=== PATIENT | male | born 1935 | race African-American/Black ===

== ENCOUNTER 2017-08-08 12:41 | Inpatient (IN) | payer BC ==
[~2017-08-08] VITALS: Ht 175.3 cm; Wt 74.8 kg
[2017-08-08 16:15] LABS: BASOPHILS % 0.7 % (0.0-2.0); HEMATOCRIT. 40.3 % (42.0-52.0); HEMOGLOBIN. 13.9 g/dL (14.0-18.0); LYMPHOCYTES % 18.5 % (20.0-50.0); MEAN CORPUSCULAR HEMOGLOBIN 31.7 pg (28.0-32.0); MEAN CORPUSCULAR VOLUME 91.9 fL (80.0-94.0); MEAN PLATELET VOLUME 8.7 fl (7.4-10.4); MONOCYTES % 8.4 % (2.0-8.0); NEUTROPHILS % 70.4 % (40.0-76.0); PLATELET 242 x1000/uL (130-400); RED BLOOD CELL COUNT 4.38 mill/uL (4.7-6.1); RED CELL DISTRIBUTION WIDTH 12.6 % (11.6-14.6)
[2017-08-08 16:18] LABS: PROTHROMBIN TIME 10.6 sec (9.4-11.6)
[2017-08-08 16:21] LABS: CHLORIDE 105 mEq/L (98-107)
[2017-08-08 16:26] LABS: CLARITY URINE CLOUDY (CLEAR); COLOR URINE YELLOW (YELLOW); KETONES URINE NEGATIVE (NEGATIVE); LEUKOCYTE ESTERASE URINE 3+ (NEGATIVE); NITRITE URINE NEGATIVE (NEGATIVE); OCCULT BLOOD URINE 3+ (NEGATIVE); PROTEIN URINE 2+ (NEGATIVE); SPECIFIC GRAVITY URINE 1.017 (1.005-1.030); UROBILINOGEN URINE 0.2 E.U./dL (0.2-1.0)
[2017-08-08 16:28] LABS: T4 FREE 1.07 ng/dL (0.76-1.46)
[2017-08-08] MEDS ORDERED: TRAMADOL 50MG TABLET PO ONE (17:00)
[2017-08-08] MEDS ORDERED: LEVOFLOXACIN 750MG PREMIX 150 ML IV ONE (17:45)
[2017-08-09] VITALS: BP 160/100
[2017-08-09 00:50] VITALS: BP 160/100
[2017-08-09] MEDS ORDERED: DOCU-150 PO (01:12)
[2017-08-09] MEDS ORDERED: DEXTROSE 50% WATER 50ML SYRINGE IV PRN (02:15)
[2017-08-09] MEDS ORDERED: CLONIDINE 0.1MG TABLET PO PRN (02:15)
[2017-08-09 04:00] VITALS: BP 113/59
[2017-08-09] MEDS ORDERED: DEXT 5%/0.45% NACL 1000ML 1,000 ML IV SCH (06:00)
[2017-08-09] MEDS: BLOOD SUGAR DIAGNOSTIC STRIP TEST SCH ×4 (07:20→21:34)
[2017-08-09 08:00] VITALS: BP 111/60
[2017-08-09] MEDS: INSULIN LISPRO 100 UNITS/ML SUBCUT SCH ×4 (08:35→22:20)
[2017-08-09] MEDS: SODIUM CHLORIDE 0.9% 1,000 ML IV SCH (11:45)
[2017-08-09 12:00] VITALS: BP 151/60
[2017-08-09] MEDS: ENOXAPARIN 40MG/0.4ML SYR SUBCUT SCH (13:18)
[2017-08-09] MEDS: QUETIAPINE FUMARATE 25MG TABLET PO SCH (13:19)
[2017-08-09] MEDS ORDERED: VANCOMYCIN 1500MG in DEXTROSE 5% WATER 250ML IV SCH (14:00)
[2017-08-09 15:41] LABS: BASOPHILS % 0.8 % (0.0-2.0); EOSINOPHILS % 1.3 % (0.0-5.0); HEMATOCRIT. 40.7 % (42.0-52.0); HEMOGLOBIN. 13.5 g/dL (14.0-18.0); LYMPHOCYTES % 18.8 % (20.0-50.0); MEAN CORPUSCULAR VOLUME 93.5 fL (80.0-94.0); MEAN PLATELET VOLUME 9.2 fl (7.4-10.4); MONOCYTES % 8.1 % (2.0-8.0); PLATELET 250 x1000/uL (130-400); RED BLOOD CELL COUNT 4.35 mill/uL (4.7-6.1); RED CELL DISTRIBUTION WIDTH 12.8 % (11.6-14.6)
[2017-08-09 15:45] LABS: CHLORIDE 102 mEq/L (98-107)
[2017-08-09 16:00] VITALS: BP 97/64
[2017-08-09] MEDS: LEVOFLOXACIN 750MG PREMIX 150 ML IV SCH (18:06)
[2017-08-09] MEDS: LORAZEPAM 2MG/ML CPJ IV PRN (21:55)
[2017-08-10] MEDS: SODIUM CHLORIDE 0.9% 1,000 ML IV SCH ×2 (01:05→18:42)
[2017-08-10] MEDS: VANCOMYCIN 750 MG PREMIX 150 ML IV SCH ×2 (02:55→14:02)
[2017-08-10] MEDS: LORAZEPAM 2MG/ML CPJ IV PRN (04:37)
[2017-08-10 07:34] LABS: BASOPHILS % 0.5 % (0.0-2.0); EOSINOPHILS % 3.6 % (0.0-5.0); LYMPHOCYTES % 23.6 % (20.0-50.0); MEAN CORPUSCULAR VOLUME 92.7 fL (80.0-94.0); MONOCYTES % 9.8 % (2.0-8.0); NEUTROPHILS % 62.5 % (40.0-76.0); PLATELET 207 x1000/uL (130-400); RED CELL DISTRIBUTION WIDTH 12.6 % (11.6-14.6)
[2017-08-10] MEDS: BLOOD SUGAR DIAGNOSTIC STRIP TEST SCH ×4 (07:47→20:52)
[2017-08-10 08:00] VITALS: BP 119/65
[2017-08-10 08:15] LABS: CHLORIDE 104 mEq/L (98-107)
[2017-08-10] MEDS: ENOXAPARIN 40MG/0.4ML SYR SUBCUT SCH (08:44)
[2017-08-10] MEDS: QUETIAPINE FUMARATE 25MG TABLET PO SCH (08:44)
[2017-08-10] MEDS: INSULIN LISPRO 100 UNITS/ML SUBCUT SCH ×4 (08:44→21:01)
[2017-08-10 12:00] VITALS: BP 138/53
[2017-08-10 16:00] VITALS: BP 121/64
[2017-08-10] MEDS: LEVOFLOXACIN 750MG PREMIX 150 ML IV SCH (18:18)
[2017-08-11] VITALS: BP 125/68
[2017-08-11] MEDS: VANCOMYCIN 750 MG PREMIX 150 ML IV SCH (02:25)
[2017-08-11 06:17] LABS: BASOPHILS % 0.4 % (0.0-2.0); HEMATOCRIT. 37.1 % (42.0-52.0); HEMOGLOBIN. 12.5 g/dL (14.0-18.0); MEAN CORPUSCULAR HEMOGLOBIN 31.2 pg (28.0-32.0); MEAN CORPUSCULAR VOLUME 92.2 fL (80.0-94.0); MEAN PLATELET VOLUME 9.3 fl (7.4-10.4); NEUTROPHILS % 62.6 % (40.0-76.0); PLATELET 219 x1000/uL (130-400); RED BLOOD CELL COUNT 4.02 mill/uL (4.7-6.1); RED CELL DISTRIBUTION WIDTH 12.5 % (11.6-14.6)
[2017-08-11 06:41] LABS: CHLORIDE 107 mEq/L (98-107)
[2017-08-11] MEDS: BLOOD SUGAR DIAGNOSTIC STRIP TEST SCH ×4 (07:20→21:24)
[2017-08-11] MEDS: INSULIN LISPRO 100 UNITS/ML SUBCUT SCH ×4 (07:50→21:29)
[2017-08-11 08:00] VITALS: BP 138/77
[2017-08-11] MEDS: QUETIAPINE FUMARATE 25MG TABLET PO SCH ×2 (09:59→21:03)
[2017-08-11] MEDS: ENOXAPARIN 40MG/0.4ML SYR SUBCUT SCH (10:00)
[2017-08-11] MEDS: SODIUM CHLORIDE 0.9% 1,000 ML IV SCH (10:22)
[2017-08-11] MEDS: LORAZEPAM 2MG/ML CPJ IV PRN (14:17)
[2017-08-11] MEDS: VANCOMYCIN 1 G PREMIX 200 ML IV SCH (15:53)
[2017-08-11 16:00] VITALS: BP 146/61
[2017-08-11] MEDS: LEVOFLOXACIN 750MG PREMIX 150 ML IV SCH (19:07)
[2017-08-11 20:00] VITALS: BP 134/58
[2017-08-12] VITALS (7 sets, daily range): BP systolic 114–174; BP diastolic 62–82
[2017-08-12] MEDS: MEROPENEM 500 MG in SODIUM CHLORIDE 0.9% 50 ML IV SCH ×3 (04:41→18:32)
[2017-08-12] MEDS: VANCOMYCIN 1 G PREMIX 200 ML IV SCH ×2 (05:18→15:35)
[2017-08-12] MEDS: BLOOD SUGAR DIAGNOSTIC STRIP TEST SCH ×4 (06:42→21:25)
[2017-08-12] MEDS: ENOXAPARIN 40MG/0.4ML SYR SUBCUT SCH (08:37)
[2017-08-12] MEDS: QUETIAPINE FUMARATE 25MG TABLET PO SCH ×2 (08:37→21:19)
[2017-08-12] MEDS: INSULIN LISPRO 100 UNITS/ML SUBCUT SCH ×4 (09:49→21:59)
[2017-08-12 09:59] LABS: HEMATOCRIT 40.9 % (42.0-52.0); MEAN CORPUSCULAR HEMOGLOBIN 31.5 pg (28.0-32.0); MEAN CORPUSCULAR VOLUME 92.2 fL (80.0-94.0); PLATELET 244 x1000/uL (130-400); RED BLOOD CELL COUNT 4.44 mill/uL (4.7-6.1); RED CELL DISTRIBUTION WIDTH 12.6 % (11.6-14.6)
[2017-08-12 10:16] LABS: CHLORIDE 107 mEq/L (98-107)
[2017-08-12] MEDS: LORAZEPAM 2MG/ML CPJ IV PRN (12:18)
[2017-08-13] VITALS: BP 147/58
[2017-08-13] MEDS: MEROPENEM 500 MG in SODIUM CHLORIDE 0.9% 50 ML IV SCH ×3 (02:27→19:06)
[2017-08-13] MEDS: VANCOMYCIN 1 G PREMIX 200 ML IV SCH ×2 (03:21→17:22)
[2017-08-13 04:00] VITALS: BP 124/64
[2017-08-13] MEDS: BLOOD SUGAR DIAGNOSTIC STRIP TEST SCH ×4 (07:28→20:28)
[2017-08-13 08:31] VITALS: BP 109/62
[2017-08-13] MEDS: QUETIAPINE FUMARATE 25MG TABLET PO SCH ×2 (08:57→20:20)
[2017-08-13] MEDS: ENOXAPARIN 40MG/0.4ML SYR SUBCUT SCH (08:57)
[2017-08-13] MEDS: ACETAMINOPHEN 650MG/20.3ML UDC PO PRN ×2 (08:59→19:08)
[2017-08-13] MEDS: INSULIN LISPRO 100 UNITS/ML SUBCUT SCH ×4 (09:00→21:25)
[2017-08-13 12:33] VITALS: BP 122/57
[2017-08-13 16:44] VITALS: BP 125/59
[2017-08-13 20:00] VITALS: BP 125/71
[2017-08-14] VITALS: BP 163/67
[2017-08-14] MEDS: MEROPENEM 500 MG in SODIUM CHLORIDE 0.9% 50 ML IV SCH ×2 (02:54→11:29)
[2017-08-14 04:00] VITALS: BP 142/67
[2017-08-14] MEDS: BLOOD SUGAR DIAGNOSTIC STRIP TEST SCH ×2 (07:20→12:20)
[2017-08-14 07:46] LABS: CHLORIDE 106 mEq/L (98-107)
[2017-08-14 08:39] VITALS: BP 156/73
[2017-08-14] MEDS: QUETIAPINE FUMARATE 25MG TABLET PO SCH (08:47)
[2017-08-14] MEDS: ENOXAPARIN 40MG/0.4ML SYR SUBCUT SCH (08:48)
[2017-08-14] MEDS: INSULIN LISPRO 100 UNITS/ML SUBCUT SCH ×2 (08:49→14:12)
[2017-08-14] MEDS ORDERED: VANCOMYCIN 1 G PREMIX 200 ML IV SCH (09:00)
[2017-08-14 11:46] VITALS: BP 114/82
== END 2017-08-14 14:15 | DRG 871 ==
LOC: ER 13:36 → 6EST 18:06 → OBSVTOIN 18:06 → INTOOBSV 18:06 → ENRESERV 20:23
PROVIDERS: ADMIT Internal Medicine; ATTEND Internal Medicine
PROC: 02HV33Z Insertion of Infusion Device into Superior Vena Cava, Percutaneous Approach (ICD-10-PCS; principal; 2017-08-10)
PROC: B5181ZA Fluoroscopy of Superior Vena Cava using Low Osmolar Contrast, Guidance (ICD-10-PCS; 2017-08-10)
PROC: B548ZZA Ultrasonography of Superior Vena Cava, Guidance (ICD-10-PCS; 2017-08-10)
DX: A41.9 Sepsis, unspecified organism (principal); J18.9 Pneumonia, unspecified organism; G93.41 Metabolic encephalopathy; E11.65 Type 2 diabetes mellitus with hyperglycemia; L03.115 Cellulitis of right lower limb; N39.0 Urinary tract infection, site not specified; M86.9 Osteomyelitis, unspecified; W18.30XA Fall on same level, unspecified, initial encounter; B96.89 Other specified bacterial agents as the cause of diseases classified elsewhere; Z16.12 Extended spectrum beta lactamase (ESBL) resistance; E11.69 Type 2 diabetes mellitus with other specified complication; D64.9 Anemia, unspecified; F03.90 Unspecified dementia, unspecified severity, without behavioral disturbance, psychotic disturbance, mood disturbance, and anxiety; I10 Essential (primary) hypertension; Y93.89 Activity, other specified; Y92.238 Other place in hospital as the place of occurrence of the external cause
CPT/HCPCS: 36415; 36569; 71045; 73090; 73110; 73620; 73721; 76937; 77001; 80048; 80053; 80202; 81003; 82962; 83735; 83880; 84439; 84484; 85025; 85027; 85610; 87077; 87086; 87186; 93005; 93971; 96365; 97162; 99285; C1725; C1893; J1650; J1815; J1956; J2060; J2185; J3370; J3490; J7030; J7040; J7060

== ENCOUNTER 2018-01-02 16:24 | Emergency (ER) | payer BC ==
[~2018-01-02] VITALS: Ht 172.7 cm; Wt 75.0 kg
[~2018-01-02 16:24] MED LIST: DOCU-150 PO
[2018-01-02 17:40] LABS: BASOPHILS % 0.7 % (0.0-2.0); EOSINOPHILS % 3.1 % (0.0-5.0); HEMATOCRIT. 41.6 % (42.0-52.0); HEMOGLOBIN. 14.1 g/dL (14.0-18.0); LYMPHOCYTES % 22.1 % (20.0-50.0); MEAN CORPUSCULAR HEMOGLOBIN 31.9 pg (28.0-32.0); MEAN CORPUSCULAR VOLUME 94.1 fL (80.0-94.0); MONOCYTES % 5.2 % (2.0-8.0); NEUTROPHILS % 68.9 % (40.0-76.0); PLATELET 290 x1000/uL (130-400); RED BLOOD CELL COUNT 4.42 mill/uL (4.7-6.1); RED CELL DISTRIBUTION WIDTH 12.5 % (11.6-14.6)
[2018-01-02 17:49] LABS: CHLORIDE 102 mEq/L (98-107)
[2018-01-02 20:29] VITALS: BP 154/80
== END 2018-01-02 20:30 | disposition home or self-care (01) ==
LOC: ER 18:08
DX: G89.29 Other chronic pain (principal); M79.671 Pain in right foot; R60.0 Localized edema; E11.9 Type 2 diabetes mellitus without complications; F03.90 Unspecified dementia, unspecified severity, without behavioral disturbance, psychotic disturbance, mood disturbance, and anxiety; R03.0 Elevated blood-pressure reading, without diagnosis of hypertension
CPT/HCPCS: 36415; 73630; 80053; 85025; 85610; 99285

== ENCOUNTER 2018-05-19 00:57 | Inpatient (IN) | payer BC ==
[2018-05-19] VITALS (8 sets, daily range): BP systolic 115–158; BP diastolic 62–85
[~2018-05-19] VITALS: Ht 182.9 cm; Wt 80.3 kg
[~2018-05-19 00:57] MED LIST changes: +ASPI-1160 MT; +CLON0.1T MT; +DOCU-150 MT; -DOCU-150 PO; +ENOX40DI8 SQ; +MULT-1146 MT; +ONDA4TAB50 MT
[2018-05-19 02:33] LABS: BASOPHILS % 1.2 % (0.0-2.0); EOSINOPHILS % 1.2 % (0.0-5.0); HEMATOCRIT. 37.4 % (42.0-52.0); HEMOGLOBIN. 12.4 g/dL (14.0-18.0); LYMPHOCYTES % 7.6 % (20.0-50.0); MEAN CORPUSCULAR HEMOGLOBIN 30.7 pg (28.0-32.0); MEAN CORPUSCULAR VOLUME 92.8 fL (80.0-94.0); MONOCYTES % 5.9 % (2.0-8.0); NEUTROPHILS % 84.1 % (40.0-76.0); PLATELET 358 x1000/uL (130-400); RED BLOOD CELL COUNT 4.03 mill/uL (4.7-6.1); RED CELL DISTRIBUTION WIDTH 12.7 % (11.6-14.6)
[2018-05-19 02:39] LABS: CHLORIDE 101 mEq/L (98-107)
[2018-05-19 02:41] LABS: PARTIAL THROMBOPLASTIN TIME 27.1 sec (23.4-31.0); PROTHROMBIN TIME 10.3 sec (9.1-11.1)
[2018-05-19 03:30] LABS: CLARITY URINE CLEAR (CLEAR); COLOR URINE YELLOW (YELLOW); KETONES URINE NEGATIVE (NEGATIVE); LEUKOCYTE ESTERASE URINE NEGATIVE (NEGATIVE); NITRITE URINE NEGATIVE (NEGATIVE); OCCULT BLOOD URINE 2+ (NEGATIVE); PH URINE 5.5 (4.5-8.0); PROTEIN URINE TRACE (NEGATIVE); SPECIFIC GRAVITY URINE 1.015 (1.005-1.030); UROBILINOGEN URINE 0.2 E.U./dL (0.2-1.0)
[2018-05-19] MEDS ORDERED: SODIUM BICARBONATE 8.4% 1 MEQ/ML 50ML SYR IV SCH (04:15)
[2018-05-19] MEDS ORDERED: INSULIN REGULAR (HUMULIN R) 300UNITS/3ML IV SCH (04:15)
[2018-05-19] MEDS ORDERED: ASPIRIN 325MG TABLET PO SCH (04:15)
[2018-05-19] MEDS ORDERED: ALBUTEROL (0.083%) 2.5MG/3ML NEB HHN SCH (04:15)
[2018-05-19] MEDS ORDERED: CALCIUM CHLORIDE 1GM/10ML SYR IV SCH (04:15)
[2018-05-19] MEDS ORDERED: DEXTROSE 50% WATER 50ML SYRINGE IV SCH (04:15)
[2018-05-19] MEDS ORDERED: LORAZEPAM 2MG/ML CPJ IV ONE (05:30)
[2018-05-19] MEDS ORDERED: SODIUM CHLORIDE 0.9% 1000ML BAG (SEPSIS BOLUS) IV ONE (06:15)
[2018-05-19 06:29] LABS: CREATINE KINASE 253 IU/L (39-308)
[2018-05-19] MEDS ORDERED: ACETAMINOPHEN 650MG SUPP PR PRN (10:30)
[2018-05-19] MEDS ORDERED: DEXTROSE 50% WATER 50ML SYRINGE IV PRN (10:30)
[2018-05-19] MEDS ORDERED: DEXT 5%/0.45% NACL 1000ML 1,000 ML IV SCH (11:00)
[2018-05-19] MEDS ORDERED: ZINC220T PO (11:16)
[2018-05-19] MEDS ORDERED: ACET-2708 PO (11:16)
[2018-05-19] MEDS ORDERED: HYDR-4001 PO (11:16)
[2018-05-19] MEDS ORDERED: ASCO500C15 PO (11:16)
[2018-05-19] MEDS: INSULIN LISPRO 100 UNITS/ML SUBCUT SCH ×2 (12:00→17:36)
[2018-05-19] MEDS: DEXT 5%/0.45% NACL 1000ML 1,000 ML IV SCH ×2 (12:15→22:11)
[2018-05-19] MEDS: BLOOD SUGAR DIAGNOSTIC STRIP TEST SCH ×2 (12:15→17:34)
[2018-05-19] MEDS: PIPERACILLIN/TAZ 2.25G PREMIX 50 ML IV SCH (13:03)
[2018-05-19 14:11] LABS: BG BASE EXCESS -3.7 mmol/L (-2.0-2.0); BG DEOXYHEMOGLOBIN 1.7 % (0.0-5.0); BG FRACTION INSPIRED OXYGEN 32; BG HCO3 ACT 19.3 mmol/L (22.0-26.0); BG METHEMOGLOBIN 0.4 % (0.0-1.5); BG OXYGEN SATURATION 98.3 % (92.0-98.5); BG OXYHEMOGLOBIN 96.9 % (94.0-97.0); BG PCO2 28.5 mmHg (35.0-45.0); BG PH 7.449 (7.350-7.450); BG PO2 129.3 mmHg (75.0-100.0); BG SAMPLE SITE RIGHT RADIAL; BG TOTAL HEMOGLOBIN 10.7 g/dL (12.0-18.0); BG VENT MODE NASAL CANNULA
[2018-05-19 15:50] LABS: HEMATOCRIT 31.6 % (42.0-52.0); HEMOGLOBIN 10.7 g/dL (14.0-18.0); PLATELET 334 x1000/uL (130-400); RED BLOOD CELL COUNT 3.44 mill/uL (4.7-6.1); RED CELL DISTRIBUTION WIDTH 12.5 % (11.6-14.6)
[2018-05-19 16:11] LABS: CREATINE KINASE MB FRACTION 9.8 ng/mL (0.5-3.6)
[2018-05-19] MEDS: LORAZEPAM 2MG/ML CPJ IV PRN (22:12)
[2018-05-19] MEDS: HEPARIN 5000 UNITS/ML VIAL SUBCUT SCH (22:15)
[2018-05-19] MEDS: INSULIN GLARGINE UD 100 UNITS/ML SYR SUBCUT SCH (22:26)
[2018-05-20] VITALS (12 sets, daily range): BP systolic 92–160; BP diastolic 44–101
[2018-05-20] MEDS: PIPERACILLIN/TAZ 2.25G PREMIX 50 ML IV SCH ×3 (01:41→20:49)
[2018-05-20] MEDS: BLOOD SUGAR DIAGNOSTIC STRIP TEST SCH ×4 (04:52→18:30)
[2018-05-20] MEDS: INSULIN LISPRO 100 UNITS/ML SUBCUT SCH ×4 (04:52→18:00)
[2018-05-20 06:16] LABS: BASOPHILS % 1.1 % (0.0-2.0); HEMATOCRIT. 33.8 % (42.0-52.0); HEMOGLOBIN. 11.3 g/dL (14.0-18.0); LYMPHOCYTES % 16.1 % (20.0-50.0); MEAN CORPUSCULAR HEMOGLOBIN 31.1 pg (28.0-32.0); MEAN CORPUSCULAR VOLUME 93.3 fL (80.0-94.0); MEAN PLATELET VOLUME 8.8 fl (7.4-10.4); MONOCYTES % 11.9 % (2.0-8.0); NEUTROPHILS % 66.9 % (40.0-76.0); PLATELET 372 x1000/uL (130-400); RED BLOOD CELL COUNT 3.62 mill/uL (4.7-6.1); RED CELL DISTRIBUTION WIDTH 12.7 % (11.6-14.6)
[2018-05-20] MEDS: DEXT 5%/0.45% NACL 1000ML 1,000 ML IV SCH ×2 (07:58→17:24)
[2018-05-20] MEDS: INSULIN GLARGINE UD 100 UNITS/ML SYR SUBCUT SCH ×2 (10:59→22:06)
[2018-05-20] MEDS: HEPARIN 5000 UNITS/ML VIAL SUBCUT SCH ×2 (10:59→20:51)
[2018-05-20] MEDS: LORAZEPAM 2MG/ML CPJ IV PRN (20:11)
[2018-05-20] MEDS: ONDANSETRON HCL 4MG/2ML INJ IV PRN (20:11)
[2018-05-20] MEDS: DIPHENHYDRAMINE 50MG/ML VIAL IV PRN (20:11)
[2018-05-21] VITALS (11 sets, daily range): BP systolic 101–163; BP diastolic 47–82
[2018-05-21] MEDS: DEXT 5%/0.45% NACL 1000ML 1,000 ML IV SCH ×3 (00:06→23:50)
[2018-05-21] MEDS: INSULIN LISPRO 100 UNITS/ML SUBCUT SCH ×5 (00:07→23:49)
[2018-05-21] MEDS: LORAZEPAM 2MG/ML CPJ IV PRN (04:43)
[2018-05-21] MEDS: DIPHENHYDRAMINE 50MG/ML VIAL IV PRN (04:43)
[2018-05-21] MEDS: BLOOD SUGAR DIAGNOSTIC STRIP TEST SCH ×5 (05:48→23:34)
[2018-05-21 05:51] LABS: BASOPHILS % 0.8 % (0.0-2.0); EOSINOPHILS % 4.2 % (0.0-5.0); HEMATOCRIT. 35.7 % (42.0-52.0); HEMOGLOBIN. 11.8 g/dL (14.0-18.0); LYMPHOCYTES % 15.9 % (20.0-50.0); MEAN CORPUSCULAR HEMOGLOBIN 30.9 pg (28.0-32.0); MEAN CORPUSCULAR VOLUME 93.4 fL (80.0-94.0); MEAN PLATELET VOLUME 8.8 fl (7.4-10.4); MONOCYTES % 13.2 % (2.0-8.0); NEUTROPHILS % 65.9 % (40.0-76.0); PLATELET 393 x1000/uL (130-400); RED BLOOD CELL COUNT 3.82 mill/uL (4.7-6.1); RED CELL DISTRIBUTION WIDTH 12.9 % (11.6-14.6)
[2018-05-21] MEDS: PIPERACILLIN/TAZ 2.25G PREMIX 50 ML IV SCH ×3 (08:44→23:49)
[2018-05-21] MEDS: HEPARIN 5000 UNITS/ML VIAL SUBCUT SCH (08:45)
[2018-05-21] MEDS: INSULIN GLARGINE UD 100 UNITS/ML SYR SUBCUT SCH ×2 (10:49→21:30)
[2018-05-21] MEDS: TAMSULOSIN HCL 0.4MG SR CAPSULE PO SCH (12:26)
[2018-05-21] MEDS: LINEZOLID 600 MG PREMIX 300 ML IV SCH (21:23)
[2018-05-22] VITALS (10 sets, daily range): BP systolic 116–152; BP diastolic 51–79
[2018-05-22 05:34] LABS: HEMATOCRIT 33.7 % (42.0-52.0); HEMOGLOBIN 11.1 g/dL (14.0-18.0); MEAN CORPUSCULAR HEMOGLOBIN 30.7 pg (28.0-32.0); MEAN CORPUSCULAR VOLUME 93.3 fL (80.0-94.0); PLATELET 397 x1000/uL (130-400); RED BLOOD CELL COUNT 3.62 mill/uL (4.7-6.1); RED CELL DISTRIBUTION WIDTH 12.8 % (11.6-14.6)
[2018-05-22 05:50] LABS: CHLORIDE 111 mEq/L (98-107)
[2018-05-22] MEDS: BLOOD SUGAR DIAGNOSTIC STRIP TEST SCH ×3 (06:00→18:00)
[2018-05-22] MEDS: INSULIN LISPRO 100 UNITS/ML SUBCUT SCH ×3 (06:00→19:05)
[2018-05-22] MEDS: PIPERACILLIN/TAZ 2.25G PREMIX 50 ML IV SCH ×2 (06:21→11:58)
[2018-05-22] MEDS: LINEZOLID 600 MG PREMIX 300 ML IV SCH ×2 (09:30→22:56)
[2018-05-22] MEDS: INSULIN GLARGINE UD 100 UNITS/ML SYR SUBCUT SCH ×2 (10:29→23:04)
[2018-05-22] MEDS: TAMSULOSIN HCL 0.4MG SR CAPSULE PO SCH (10:29)
[2018-05-22] MEDS: DEXT 5%/0.45% NACL 1000ML 1,000 ML IV SCH ×2 (11:58→22:59)
[2018-05-22] MEDS: MEROPENEM 1000MG in NORMAL SALINE 100ML IV SCH (18:27)
[2018-05-23] VITALS (12 sets, daily range): BP systolic 103–157; BP diastolic 50–76
[2018-05-23] MEDS: INSULIN LISPRO 100 UNITS/ML SUBCUT SCH ×4 (01:47→18:23)
[2018-05-23] MEDS: MEROPENEM 1000MG in NORMAL SALINE 100ML IV SCH ×3 (02:08→18:22)
[2018-05-23] MEDS: ONDANSETRON HCL 4MG/2ML INJ IV PRN (04:46)
[2018-05-23 05:52] LABS: HEMATOCRIT 33.4 % (42.0-52.0); MEAN CORPUSCULAR VOLUME 93.9 fL (80.0-94.0); PLATELET 392 x1000/uL (130-400); RED BLOOD CELL COUNT 3.55 mill/uL (4.7-6.1); RED CELL DISTRIBUTION WIDTH 12.5 % (11.6-14.6)
[2018-05-23] MEDS: BLOOD SUGAR DIAGNOSTIC STRIP TEST SCH ×4 (06:00→17:37)
[2018-05-23 06:15] LABS: CHLORIDE 109 mEq/L (98-107)
[2018-05-23] MEDS ORDERED: LORAZEPAM 2MG/ML CPJ IV PRN (07:45)
[2018-05-23] MEDS: TAMSULOSIN HCL 0.4MG SR CAPSULE PO SCH (08:02)
[2018-05-23] MEDS: LINEZOLID 600 MG PREMIX 300 ML IV SCH ×2 (08:14→20:25)
[2018-05-23] MEDS: INSULIN GLARGINE UD 100 UNITS/ML SYR SUBCUT SCH ×2 (09:48→22:14)
[2018-05-23] MEDS ORDERED: QUETIAPINE FUMARATE 25MG TABLET PO SCH (21:00)
[2018-05-24] VITALS (10 sets, daily range): BP systolic 92–148; BP diastolic 51–73
[2018-05-24] MEDS: INSULIN LISPRO 100 UNITS/ML SUBCUT SCH ×3 (00:13→12:39)
[2018-05-24] MEDS: BLOOD SUGAR DIAGNOSTIC STRIP TEST SCH ×3 (00:42→12:01)
[2018-05-24] MEDS: MEROPENEM 1000MG in NORMAL SALINE 100ML IV SCH ×2 (02:38→09:11)
[2018-05-24 06:35] LABS: BASOPHILS % 0.8 % (0.0-2.0); EOSINOPHILS % 6.2 % (0.0-5.0); HEMATOCRIT. 30.6 % (42.0-52.0); HEMOGLOBIN. 10.1 g/dL (14.0-18.0); LYMPHOCYTES % 24.1 % (20.0-50.0); MEAN CORPUSCULAR HEMOGLOBIN 30.9 pg (28.0-32.0); MEAN CORPUSCULAR VOLUME 93.8 fL (80.0-94.0); MEAN PLATELET VOLUME 8.2 fl (7.4-10.4); MONOCYTES % 8.7 % (2.0-8.0); NEUTROPHILS % 60.2 % (40.0-76.0); PLATELET 374 x1000/uL (130-400); RED BLOOD CELL COUNT 3.26 mill/uL (4.7-6.1); RED CELL DISTRIBUTION WIDTH 12.5 % (11.6-14.6)
[2018-05-24 06:55] LABS: CHLORIDE 105 mEq/L (98-107)
[2018-05-24] MEDS ORDERED: DEXT 5%/0.45% NACL 1000ML 1,000 ML IV SCH (07:00)
[2018-05-24] MEDS: TAMSULOSIN HCL 0.4MG SR CAPSULE PO SCH (08:34)
[2018-05-24] MEDS: LINEZOLID 600 MG PREMIX 300 ML IV SCH (09:11)
[2018-05-24] MEDS: INSULIN GLARGINE UD 100 UNITS/ML SYR SUBCUT SCH (09:13)
[2018-05-24] MEDS ORDERED: QUETIAPINE FUMARATE 25MG TABLET PO SCH (10:00)
[2018-05-24] MEDS ORDERED: INSULIN GLARGINE UD 100 UNITS/ML SYR SUBCUT SCH (11:00)
== END 2018-05-24 16:20 | DRG 682 ==
LOC: ER 00:57 → ENRESERV 08:23 → 5EST 09:42
PROVIDERS: ADMIT Internal Medicine; ATTEND Internal Medicine
DX: N17.9 Acute kidney failure, unspecified (principal); G92 Toxic encephalopathy; J69.0 Pneumonitis due to inhalation of food and vomit; E87.2 Acidosis; N13.8 Other obstructive and reflux uropathy; L97.919 Non-pressure chronic ulcer of unspecified part of right lower leg with unspecified severity; N39.0 Urinary tract infection, site not specified; N13.9 Obstructive and reflux uropathy, unspecified; I10 Essential (primary) hypertension; E87.5 Hyperkalemia; E78.5 Hyperlipidemia, unspecified; D72.829 Elevated white blood cell count, unspecified; E86.9 Volume depletion, unspecified; F03.90 Unspecified dementia, unspecified severity, without behavioral disturbance, psychotic disturbance, mood disturbance, and anxiety; N40.1 Benign prostatic hyperplasia with lower urinary tract symptoms; D64.9 Anemia, unspecified; E11.649 Type 2 diabetes mellitus with hypoglycemia without coma; Z87.440 Personal history of urinary (tract) infections; Z86.73 Personal history of transient ischemic attack (TIA), and cerebral infarction without residual deficits
CPT/HCPCS: 36415; 36600; 71045; 74176; 76770; 80048; 82140; 82375; 82550; 82553; 82805; 82962; 83036; 84153; 84484; 85027; 86850; 86900; 87070; 87077; 87186; 93005; 93970; 96374; 96375; 99285; J1200; J1644; J1815; J2020; J2060; J2185; J2405; J2543; J3490; J7040; A4315; G0103

== ENCOUNTER 2018-05-25 11:23 | Inpatient (IN) | payer BC ==
[~2018-05-25] VITALS: Ht 175.3 cm; Wt 68.1 kg
[~2018-05-25 11:23] MED LIST changes: +ACET-2708 PO; +ASCO500C15 PO; -CLON0.1T MT; -ENOX40DI8 SQ; +HYDR-4001 PO; +ZINC220T PO
[2018-05-25] MEDS ORDERED: CLONIDINE 0.1MG TABLET PO ONE (12:15)
[2018-05-25 13:00] LABS: BASOPHILS % 0.8 % (0.0-2.0); EOSINOPHILS % 2.4 % (0.0-5.0); HEMATOCRIT. 31.8 % (42.0-52.0); HEMOGLOBIN. 10.5 g/dL (14.0-18.0); LYMPHOCYTES % 14.5 % (20.0-50.0); MEAN CORPUSCULAR HEMOGLOBIN 31.4 pg (28.0-32.0); MEAN CORPUSCULAR VOLUME 94.7 fL (80.0-94.0); MONOCYTES % 4.8 % (2.0-8.0); NEUTROPHILS % 77.5 % (40.0-76.0); PLATELET 419 x1000/uL (130-400); RED BLOOD CELL COUNT 3.36 mill/uL (4.7-6.1); RED CELL DISTRIBUTION WIDTH 12.9 % (11.6-14.6)
[2018-05-25 13:08] LABS: CHLORIDE 103 mEq/L (98-107)
[2018-05-25 13:09] LABS: CLARITY URINE CLOUDY (CLEAR); COLOR URINE YELLOW (YELLOW); KETONES URINE NEGATIVE (NEGATIVE); LEUKOCYTE ESTERASE URINE TRACE (NEGATIVE); NITRITE URINE NEGATIVE (NEGATIVE); OCCULT BLOOD URINE 3+ (NEGATIVE); PH URINE 6.5 (4.5-8.0); PROTEIN URINE 2+ (NEGATIVE); SPECIFIC GRAVITY URINE 1.013 (1.005-1.030); UROBILINOGEN URINE 0.2 E.U./dL (0.2-1.0)
[2018-05-25 13:51] LABS: OPIATES URINE SCREEN NEGATIVE (NEGATIVE)
[2018-05-25 13:52] LABS: *AMPHETAMINES SCREEN URINE NEGATIVE (NEGATIVE); *BARBITURATES SCREEN URINE NEGATIVE (NEGATIVE); *COCAINE SCREEN URINE NEGATIVE (NEGATIVE); CANNABINOID URINE SCREEN NEGATIVE (NEGATIVE); PHENCYCLIDINE URINE SCREEN NEGATIVE (NEGATIVE)
[2018-05-25 13:53] LABS: *BENZODIAZEPINES SCREEN URINE NEGATIVE (NEGATIVE); METHADONE URINE SCREEN NEGATIVE (NEGATIVE)
[2018-05-25] MEDS ORDERED: MORPHINE SULFATE 4 MG/ML CPJ (NOT FOR IM USE) IV ONE (16:30)
[2018-05-25 23:00] VITALS: BP 140/81
[2018-05-26] VITALS (13 sets, daily range): BP systolic 108–166; BP diastolic 48–77
[2018-05-26] MEDS ORDERED: MEROPENEM 1,000 MG in SODIUM CHLORIDE 0.9% 100 ML IV SCH (01:30)
[2018-05-26] MEDS ORDERED: ACETAMINOPHEN 650MG/20.3ML UDC PO PRN (01:30)
[2018-05-26] MEDS ORDERED: ASPIRIN 81MG TABLET PO SCH (02:30)
[2018-05-26] MEDS ORDERED: DEXTROSE 50% WATER 50ML SYRINGE IV PRN (02:45)
[2018-05-26] MEDS: SODIUM CHLORIDE 0.9% 100 ML IV SCH ×4 (03:00→09:35)
[2018-05-26] MEDS: MEROPENEM 1,000 MG in SODIUM CHLORIDE 0.9% 100 ML IV SCH ×3 (04:33→21:20)
[2018-05-26] MEDS: ENOXAPARIN 40MG/0.4ML SYR SUBCUT SCH (04:34)
[2018-05-26] MEDS: BLOOD SUGAR DIAGNOSTIC STRIP TEST SCH ×4 (07:30→21:00)
[2018-05-26] MEDS: INSULIN LISPRO 100 UNITS/ML SUBCUT SCH ×4 (08:00→21:00)
[2018-05-26] MEDS: LORAZEPAM 2MG/ML CPJ IV PRN ×2 (08:08→21:25)
[2018-05-26] MEDS: ASPIRIN 81MG TABLET PO SCH (09:00)
[2018-05-26] MEDS: QUETIAPINE FUMARATE 25MG TABLET PO SCH ×3 (09:00→19:55)
[2018-05-26] MEDS: TAMSULOSIN HCL 0.4MG SR CAPSULE PO SCH (09:00)
[2018-05-26] MEDS: LOSARTAN POTASSIUM 50 MG TABLET PO SCH ×2 (09:00→19:55)
[2018-05-26] MEDS: SODIUM CHLORIDE 0.9% 1,000 ML IV SCH (09:55)
[2018-05-26 10:06] LABS: *CREATININE RANDOM URINE 84.1 mg/dL (Not Estab.); MICROALBUMIN RANDOM URINE 467.2 ug/mL (Not Estab.)
[2018-05-27] VITALS (11 sets, daily range): BP systolic 108–164; BP diastolic 50–82
[2018-05-27] MEDS: MEROPENEM 1,000 MG in SODIUM CHLORIDE 0.9% 100 ML IV SCH ×3 (06:23→22:00)
[2018-05-27] MEDS: SODIUM CHLORIDE 0.9% 1,000 ML IV SCH (06:24)
[2018-05-27] MEDS: BLOOD SUGAR DIAGNOSTIC STRIP TEST SCH ×4 (07:27→21:00)
[2018-05-27] MEDS: INSULIN LISPRO 100 UNITS/ML SUBCUT SCH ×3 (07:28→17:17)
[2018-05-27] MEDS: ASPIRIN 81MG TABLET PO SCH (08:21)
[2018-05-27] MEDS: LOSARTAN POTASSIUM 50 MG TABLET PO SCH ×2 (08:21→22:42)
[2018-05-27] MEDS: TAMSULOSIN HCL 0.4MG SR CAPSULE PO SCH (08:21)
[2018-05-27] MEDS: QUETIAPINE FUMARATE 25MG TABLET PO SCH ×2 (08:21→22:43)
[2018-05-27] MEDS: ENOXAPARIN 40MG/0.4ML SYR SUBCUT SCH (08:22)
[2018-05-27 12:54] LABS: BASOPHILS % 1.2 % (0.0-2.0); EOSINOPHILS % 5.6 % (0.0-5.0); HEMATOCRIT. 30.4 % (42.0-52.0); LYMPHOCYTES % 24.5 % (20.0-50.0); MEAN CORPUSCULAR HEMOGLOBIN 31.2 pg (28.0-32.0); MEAN CORPUSCULAR VOLUME 94.5 fL (80.0-94.0); MEAN PLATELET VOLUME 7.9 fl (7.4-10.4); MONOCYTES % 7.4 % (2.0-8.0); NEUTROPHILS % 61.3 % (40.0-76.0); PLATELET 389 x1000/uL (130-400); RED BLOOD CELL COUNT 3.22 mill/uL (4.7-6.1)
[2018-05-27 13:00] LABS: CHLORIDE 108 mEq/L (98-107)
[2018-05-27 13:15] LABS: BG BASE EXCESS 1.5 mmol/L (-2.0-2.0); BG CARBOXYHEMOGLOBIN 0.1 % (0.5-1.5); BG DEOXYHEMOGLOBIN 4.6 % (0.0-5.0); BG FRACTION INSPIRED OXYGEN 21; BG HCO3 ACT 26.1 mmol/L (22.0-26.0); BG METHEMOGLOBIN 0.3 % (0.0-1.5); BG OXYGEN SATURATION 95.4 % (92.0-98.5); BG PCO2 41.1 mmHg (35.0-45.0); BG PH 7.421 (7.350-7.450); BG PO2 77.8 mmHg (75.0-100.0); BG SAMPLE SITE RIGHT RADIAL; BG TOTAL HEMOGLOBIN 10.3 g/dL (12.0-18.0); BG VENT MODE ROOM AIR
[2018-05-27] MEDS: MEMANTINE HCL 5MG TABLET PO SCH (18:59)
[2018-05-27] MEDS ORDERED: HALOPERIDOL LACTATE 5MG/ML VIAL IM NR (21:10)
[2018-05-28] VITALS (10 sets, daily range): BP systolic 107–187; BP diastolic 50–86
[2018-05-28] MEDS: SODIUM CHLORIDE 0.9% 1,000 ML IV SCH ×2 (01:45→21:45)
[2018-05-28] MEDS: HYDROCODONE/ACETAMINOPHEN 5/325MG TABLET PO PRN ×2 (04:58→14:02)
[2018-05-28] MEDS: LORAZEPAM 2MG/ML CPJ IV PRN (05:43)
[2018-05-28] MEDS: MEROPENEM 1,000 MG in SODIUM CHLORIDE 0.9% 100 ML IV SCH ×3 (06:00→21:01)
[2018-05-28] MEDS: BLOOD SUGAR DIAGNOSTIC STRIP TEST SCH ×4 (08:18→20:25)
[2018-05-28] MEDS: ASPIRIN 81MG TABLET PO SCH (08:49)
[2018-05-28] MEDS: TAMSULOSIN HCL 0.4MG SR CAPSULE PO SCH (08:49)
[2018-05-28] MEDS: MEMANTINE HCL 5MG TABLET PO SCH (08:49)
[2018-05-28] MEDS: LOSARTAN POTASSIUM 50 MG TABLET PO SCH ×2 (08:49→20:59)
[2018-05-28] MEDS: QUETIAPINE FUMARATE 25MG TABLET PO SCH (08:49)
[2018-05-28] MEDS: ACETAMINOPHEN 650MG/20.3ML UDC PO PRN (08:50)
[2018-05-28] MEDS: ENOXAPARIN 40MG/0.4ML SYR SUBCUT SCH (08:50)
[2018-05-28] MEDS: INSULIN LISPRO 100 UNITS/ML SUBCUT SCH ×4 (08:53→20:25)
[2018-05-28 09:52] LABS: HEMATOCRIT 34.5 % (42.0-52.0); HEMOGLOBIN 11.4 g/dL (14.0-18.0); MEAN CORPUSCULAR HEMOGLOBIN 31.4 pg (28.0-32.0); MEAN CORPUSCULAR VOLUME 95.4 fL (80.0-94.0); PLATELET 451 x1000/uL (130-400); RED BLOOD CELL COUNT 3.62 mill/uL (4.7-6.1); RED CELL DISTRIBUTION WIDTH 13.2 % (11.6-14.6)
[2018-05-28 09:59] LABS: CHLORIDE 107 mEq/L (98-107)
[2018-05-28 10:33] LABS: VITAMIN B12 SERUM 369 pg/mL (211-911)
[2018-05-28] MEDS ORDERED: HALOPERIDOL 0.5MG TABLET PO PRN (13:00)
[2018-05-28] MEDS: FLUCONAZOLE 200 MG/100ML BAG 100 ML IV SCH (13:47)
[2018-05-28] MEDS: HALOPERIDOL 1MG TABLET PO PRN (14:02)
[2018-05-28] MEDS: RISPERIDONE 1MG TABLET PO SCH (20:59)
[2018-05-28] MEDS: CARVEDILOL 3.125 MG TABLET PO SCH (21:00)
[2018-05-29] VITALS (10 sets, daily range): BP systolic 114–159; BP diastolic 25–106
[2018-05-29] MEDS: HYDROCODONE/ACETAMINOPHEN 5/325MG TABLET PO PRN ×2 (00:12→23:22)
[2018-05-29 03:35] LABS: CLARITY URINE CLEAR (CLEAR); COLOR URINE YELLOW (YELLOW); KETONES URINE TRACE (NEGATIVE); LEUKOCYTE ESTERASE URINE NEGATIVE (NEGATIVE); NITRITE URINE NEGATIVE (NEGATIVE); OCCULT BLOOD URINE 3+ (NEGATIVE); PH URINE 5.5 (4.5-8.0); PROTEIN URINE 1+ (NEGATIVE); SPECIFIC GRAVITY URINE 1.013 (1.005-1.030); UROBILINOGEN URINE 0.2 E.U./dL (0.2-1.0)
[2018-05-29] MEDS: HALOPERIDOL 1MG TABLET PO PRN ×2 (04:15→21:06)
[2018-05-29] MEDS: ACETAMINOPHEN 650MG/20.3ML UDC PO PRN (04:49)
[2018-05-29] MEDS: MEROPENEM 1,000 MG in SODIUM CHLORIDE 0.9% 100 ML IV SCH ×3 (05:09→21:29)
[2018-05-29 06:14] LABS: HEMATOCRIT 33.1 % (42.0-52.0); HEMOGLOBIN 10.6 g/dL (14.0-18.0); MEAN CORPUSCULAR HEMOGLOBIN 31.4 pg (28.0-32.0); MEAN CORPUSCULAR VOLUME 98.2 fL (80.0-94.0); PLATELET 347 x1000/uL (130-400); RED BLOOD CELL COUNT 3.37 mill/uL (4.7-6.1); RED CELL DISTRIBUTION WIDTH 13.6 % (11.6-14.6)
[2018-05-29] MEDS: BLOOD SUGAR DIAGNOSTIC STRIP TEST SCH ×4 (06:38→20:04)
[2018-05-29 06:41] LABS: CHLORIDE 110 mEq/L (98-107)
[2018-05-29] MEDS: INSULIN LISPRO 100 UNITS/ML SUBCUT SCH ×4 (08:00→20:04)
[2018-05-29] MEDS: FLUCONAZOLE 200 MG/100ML BAG 100 ML IV SCH (09:58)
[2018-05-29] MEDS: ASPIRIN 81MG TABLET PO SCH (09:58)
[2018-05-29] MEDS: MEMANTINE HCL 5MG TABLET PO SCH (09:58)
[2018-05-29] MEDS: TAMSULOSIN HCL 0.4MG SR CAPSULE PO SCH (09:59)
[2018-05-29] MEDS: CARVEDILOL 3.125 MG TABLET PO SCH ×2 (09:59→20:03)
[2018-05-29] MEDS: LOSARTAN POTASSIUM 50 MG TABLET PO SCH ×2 (10:00→20:02)
[2018-05-29] MEDS: RISPERIDONE 1MG TABLET PO SCH ×2 (10:13→20:03)
[2018-05-30] VITALS (9 sets, daily range): BP systolic 140–159; BP diastolic 59–112
[2018-05-30] MEDS: HALOPERIDOL 1MG TABLET PO PRN (07:48)
[2018-05-30] MEDS: BLOOD SUGAR DIAGNOSTIC STRIP TEST SCH ×3 (08:06→16:40)
[2018-05-30] MEDS: INSULIN LISPRO 100 UNITS/ML SUBCUT SCH ×3 (08:08→17:09)
[2018-05-30] MEDS: ASPIRIN 81MG TABLET PO SCH (08:09)
[2018-05-30] MEDS: LOSARTAN POTASSIUM 50 MG TABLET PO SCH (08:09)
[2018-05-30] MEDS: RISPERIDONE 1MG TABLET PO SCH (08:10)
[2018-05-30] MEDS: CARVEDILOL 3.125 MG TABLET PO SCH (08:10)
[2018-05-30] MEDS: MEMANTINE HCL 5MG TABLET PO SCH (08:10)
[2018-05-30] MEDS: TAMSULOSIN HCL 0.4MG SR CAPSULE PO SCH (08:10)
[2018-05-30] MEDS: MEROPENEM 1,000 MG in SODIUM CHLORIDE 0.9% 100 ML IV SCH ×2 (08:12→14:28)
[2018-05-30 08:54] LABS: HEMOGLOBIN 10.5 g/dL (14.0-18.0); MEAN CORPUSCULAR HEMOGLOBIN 30.9 pg (28.0-32.0); PLATELET 426 x1000/uL (130-400); RED BLOOD CELL COUNT 3.41 mill/uL (4.7-6.1); RED CELL DISTRIBUTION WIDTH 13.1 % (11.6-14.6)
[2018-05-30 09:07] LABS: CHLORIDE 105 mEq/L (98-107)
[2018-05-30] MEDS: FLUCONAZOLE 200 MG/100ML BAG 100 ML IV SCH (09:32)
[2018-05-30] MEDS ORDERED: AMLODIPINE 5MG TABLET PO SCH (10:45)
[2018-05-30] MEDS ORDERED: HYDROCODONE/ACETAMINOPHEN 5/325MG TABLET PO PRN (13:30)
[2018-05-30] MEDS ORDERED: CLONIDINE 0.1MG TABLET PO PRN (16:30)
[2018-05-30] MEDS ORDERED: CLONAZEPAM 0.5MG TABLET PO SCH (17:15)
== END 2018-05-30 20:40 | DRG 56 ==
LOC: ER 11:23 → 5EST 16:22 → EDBEDREQ 16:31 → ENRESERV 20:03
PROVIDERS: ADMIT Internal Medicine; ATTEND Internal Medicine
DX: G30.9 Alzheimer's disease, unspecified (principal); I50.33 Acute on chronic diastolic (congestive) heart failure; G93.40 Encephalopathy, unspecified; L03.115 Cellulitis of right lower limb; F02.81 Dementia in other diseases classified elsewhere, unspecified severity, with behavioral disturbance; L97.919 Non-pressure chronic ulcer of unspecified part of right lower leg with unspecified severity; I67.82 Cerebral ischemia; N39.0 Urinary tract infection, site not specified; E11.65 Type 2 diabetes mellitus with hyperglycemia; E11.622 Type 2 diabetes mellitus with other skin ulcer; E78.5 Hyperlipidemia, unspecified; I11.0 Hypertensive heart disease with heart failure; R74.8 Abnormal levels of other serum enzymes; R31.9 Hematuria, unspecified; N40.0 Benign prostatic hyperplasia without lower urinary tract symptoms; D64.9 Anemia, unspecified; G31.9 Degenerative disease of nervous system, unspecified; Z86.73 Personal history of transient ischemic attack (TIA), and cerebral infarction without residual deficits; Z78.1 Physical restraint status; Z79.899 Other long term (current) drug therapy; Z87.440 Personal history of urinary (tract) infections
CPT/HCPCS: 36415; 36600; 71045; 73700; 80048; 80305; 82043; 82140; 82375; 82570; 82607; 82805; 82962; 83036; 83605; 83880; 84153; 84443; 84484; 85027; 85651; 87070; 87077; 93005; 93306; 96374; 99285; C1893; J1450; J1630; J1650; J1815; J2060; J2185; J2270; J7030; J7050; A4315; G0103